=== PATIENT | male | born 1965 | race Caucasian/White ===

== ENCOUNTER 2016-07-18 16:09 | Outpatient (CLI) | payer OTHER ==
--- NOTE | 2016-07-18 17:09 | DIAGNOSTIC IMAGING REPORT ---
PROCEDURE: XR KNEE 3 VIEWS - RIGHT INDICATION: RIB PAIN ON RIGHT SIDE/ACUTE PAIN OF RIGHT KNEE TECHNIQUE: Three views. COMPARISON: None. FINDINGS: Osseous structures and joint spaces are normal. IMPRESSION: 1. Normal right knee.
--- NOTE | 2016-07-18 17:18 | DIAGNOSTIC IMAGING REPORT ---
PROCEDURE: XR RIBS BILATERAL INDICATION: RIB PAIN ON RIGHT SIDE TECHNIQUE: Two views of the ribs (left and right) with single PA view chest. COMPARISON: None. FINDINGS: RIGHT RIBS: No displaced rib fractures. No suspicious rib lesions. LEFT RIBS: No displaced rib fractures. No suspicious rib lesions. CHEST: Normal cardiomediastinal contour. Clear lungs without pleural effusion, pneumothorax, or contusion. The other visible osseous structures are intact. IMPRESSION: 1. Intact left ribs. Intact right ribs 2. Normal chest without radiographic evidence of trauma.
== END 2016-07-18 23:00 ==
LOC: XR SRH 16:09
DX: R07.81 Pleurodynia (principal); M25.561 Pain in right knee

== ENCOUNTER 2016-07-31 10:00 | Outpatient (CLI) | payer OTHER ==
--- NOTE | 2016-07-31 10:41 | DIAGNOSTIC IMAGING REPORT ---
PROCEDURE: XR LUMBAR SPINE 2 OR 3 VIEWS INDICATION: BACK PX , RIB DISCOMFORT TECHNIQUE: Three views. COMPARISON: None. FINDINGS: L5 S1 spondylosis with a vacuum disc and a large posterior osteophytic ridge. IMPRESSION: 1. L5 S1 spondylosis with a vacuum disc and a large posterior osteophytic ridge.
--- NOTE | 2016-07-31 10:43 | DIAGNOSTIC IMAGING REPORT ---
PROCEDURE: XR CHEST 2 VIEW INDICATION: BACK PX , RIB DISCOMFORT TECHNIQUE: PA and lateral views. COMPARISON: None. FINDINGS: Lungs are clear. Heart and mediastinum are normal. Thorax is normal. IMPRESSION: 1. Negative chest.
--- NOTE | 2016-07-31 10:45 | DIAGNOSTIC IMAGING REPORT ---
PROCEDURE: XR THORACIC SPINE 2 VIEWS INDICATION: BACK PX , RIB DISCOMFORT TECHNIQUE: Three views. COMPARISON: None. FINDINGS: Osseous structures and disc spaces are normal. No evidence of an acute process or fracture. IMPRESSION: 1. Negative thoracic spine.
== END 2016-07-31 23:00 ==
LOC: XR SRH 10:00
DX: M54.9 Dorsalgia, unspecified (principal); R07.81 Pleurodynia